=== PATIENT | female | born 1980 | race African-American/Black ===

== ENCOUNTER 2019-01-14 17:45 | Emergency (ER) | payer OTHER, SELFPAY ==
[2019-01-14 18:28] VITALS: BP 128/72; PULSE 86; RESP 18; TEMP 36.8; O2SAT 100; BMI 27.2
--- NOTE | 2019-01-14 19:28 | DI.US.S_ITS ---
PROCEDURE: US OB <= 14 WEEKS FETUS INDICATIONS: SPOTTING OUTSIDE/PRIOR DATING DATA: Last menstrual period (LMP): 12/06/18. LMP-based estimated date of delivery (ANISH): 09/12/19. First dating scan (date and location): 01/14/19 Estimated date of delivery (ANISH) from first dating scan: Not applicable. TECHNIQUE: Real-time scanning was performed of the fetus and maternal pelvic organs, with image documentation. Endovaginal scanning was also performed to better visualize the fetus and maternal ovaries. COMPARISON: None. FINDINGS: Embryo: Intrauterine gestational sac is identified measuring 4 mm correspond to 5 weeks one day. No pole is identified. Measurement variability in dating: +/- 4 weeks by LMP, +/- 7 days by mean sac diameter (use before 6 weeks gestation if crown-rump length not able to be measured), +/- 5 days by crown-rump length (up to 8 weeks 6 days gestation), +/- 7 days by crown-rump length (up to 13 weeks 6 days gestation). Maternal organs: Ovaries demonstrated left corpus luteal cyst. Limited images through the kidneys demonstrate no hydronephrosis. IMPRESSION: 1. Intrauterine gestational sac identified corresponding to gestational age of 5 weeks one day. Recommend followup imaging for evaluation of pole development and heart tones, as well as correlation with beta hCG levels. Dictated by: Melissa Roberts M.D. on 01/14/2019 at 21:16 Approved by: Melissa Roberts M.D. on 01/14/2019 at 21:17
--- NOTE | 2019-01-14 20:02 | ED.PREGNANCY ---
HPI - <KFOFI Arguelles - Last Filed: 01/14/19 22:01> General Chief complaint: Vaginal Bleeding Stated complaint: 5 weeks /spotting and cramping Time Seen by Provider: 01/14/19 19:26 Source: patient Mode of arrival: ambulatory Limitations: no limitations History of Present Illness HPI Narrative: 38-year-old female , presents emergency department today stating that she is 5 weeks . This morning she woke and had some lower abdominal cramping for which she took 650 mg of Tylenol for. She states she is in found some brown vaginal discharge on the toilet paper after she urinated around noon today. She had 3 more episodes of bloody brown discharge, and then the bleeding resolved. She states she has very mild cramping at this time, describes it as a 1/10 without aggravating or alleviating factors. She denies any fevers, chest pain, shortness of breath, dizziness, nausea, vomiting, diarrhea, or syncope. She states that she had some crampy bleeding beginning of this and is currently scheduled for a ultrasound on February 02. Related Data Allergies Allergy/AdvReac Type Severity Reaction Status Date / Time clavulanic acid Allergy Verified 01/14/19 18:28 Review of Systems <KOFFI Arguelles - Last Filed: 01/14/19 22:01> Review of Systems Narrative: REVIEW OF SYSTEMS: GENERAL: Denies fever, chills, malaise, or wt. loss. HENT: No head trauma, sore throat, or dysphagia. EYES: No loss of vision, double vision, eye pain, or irritation. CARDIOVASCULAR: No chest pain, palpitations, or orthopnea. RESPIRATORY: No shortness of breath or cough. GASTROINTESTINAL: Complains of abdominal cramping, see HPI GENITOURINARY: No flank pain, urinary incontinence, hesitancy, frequency, or dysuria. Complains of vaginal bleeding, see HPI. MUSCULOSKELETAL: No pain, weakness, or trauma. INTEGUMENTARY: No rash, lesions, or pruritus. NEURO: No numbness, tingling, memory loss, confusion, or headaches. PSYCH: No behavior or mood changes. PMFSH - <KOFFI Arguelles - Last Filed: 01/14/19 22:01> Past Medical History Medical history: Reports no medical history Family History Family history: Reports no significant family history Exam <KOFFI Arguelles - Last Filed: 01/14/19 22:01> Initial Vital Signs Initial Vital Signs: Vital Signs Temperature 98.3 F 01/14/19 18:28 Pulse Rate 86 01/14/19 18:28 Respiratory Rate 18 01/14/19 18:28 Blood Pressure 128/72 01/14/19 18:28 Pulse Oximetry 100 01/14/19 18:28 PHYSICAL EXAMINATION: GENERAL: Well groomed, alert, and cooperative. Answers questions promptly and appropriately. Vital signs noted. HENT: Normocephalic, atraumatic. Hearing intact. Oral mucosa is pink and moist. EYES: Conjunctiva pink, sclera white, no periorbital swelling. CARDIOVASCULAR: S1 and S2 sounds normal. Regular rate and rhythm, no murmurs, clicks, or bruits. No pedal edema. RESPIRATORY: Normal respiratory rate, trachea midline, airway patent. No stridor, nasal flaring or accessory muscle use. Lungs are clear in all pedro without wheeze, rhonchi, or crackles. GASTROINTESTINAL: Bowel sounds normoactive. Abdomen is soft and non-tender. No organomegaly, no palpable masses. GENITALURINARY: No flank tenderness. MUSCULOSKELETAL: Normal gait and coordination. Equal tone and mass bilaterally. EXTREMITIES: CMS intact, no pedal edema. SKIN: Warm, dry, soft, appropriate color for ethnicity. No lesions, rashes, or wounds. NEURO: Alert and Oriented X 3. Good coordination. No ataxia, or sensory deficits, or cognitive issues. PSYCH: Appropriate affect and mood. <Nicole Cordova MD - Last Filed: 01/15/19 02:00> Initial Vital Signs Initial Vital Signs: Vital Signs Temperature 98.3 F 01/14/19 18:28 Pulse Rate 86 01/14/19 18:28 Respiratory Rate 18 01/14/19 18:28 Blood Pressure 128/72 01/14/19 18:28 Pulse Oximetry 100 01/14/19 18:28 Course <KOFFI Arguelles - Last Filed: 01/14/19 22:01> Orders Ordered: ED Orders 01/14/19 19:28 US OB <= 14 weeks fetus Stat 01/14/19 20:13 ABO RH Type Stat Complete Blood Count AUTO DIFF Stat Comprehensive Metabolic Panel Stat HCG Quantitative Stat Consultations Consultation #1: Patient staffed with Dr. Cordova. Vital Signs Vital signs: Vital Signs - 8 hr 01/14/19 18:28 01/14/19 20:18 01/14/19 21:02 Temperature 98.3 F Pulse Rate 86 84 90 Respiratory Rate 18 15 16 Blood Pressure 128/72 Blood Pressure [Left Arm] 131/75 123/56 L Pulse Oximetry 100 100 100 <Nicole Cordova MD - Last Filed: 01/15/19 02:00> Orders Ordered: ED Orders 01/14/19 19:28 US OB <= 14 weeks fetus Stat 01/14/19 20:13 ABO RH Type Stat Complete Blood Count AUTO DIFF Stat Comprehensive Metabolic Panel Stat HCG Quantitative Stat Vital Signs Vital signs: Vital Signs - 8 hr 01/14/19 18:28 01/14/19 20:18 01/14/19 21:02 Temperature 98.3 F Pulse Rate 86 84 90 Respiratory Rate 18 15 16 Blood Pressure 128/72 Blood Pressure [Left Arm] 131/75 123/56 L Pulse Oximetry 100 100 100 MDM - OB/Uterine Contractions <KOFFI Arguelles - Last Filed: 01/14/19 22:01> Medical Records Attestation: I reviewed the patient's medical records. Lab Data Attestation: I reviewed the patient's lab results. Result diagrams: 01/14/19 20:13 01/14/19 20:13 Labs: Lab Results 01/14/19 01/14/19 01/14/19 Range/Units 20:13 20:13 20:13 WBC 11.7 H (4.5-11.0) X10^3/uL RBC 4.42 (4.0-5.2) X10^6/uL Hgb 13.5 (12.0-16.0) g/dL Hct 40.0 (36-46) % MCV 90.5 (80-100) fL MCH 30.6 (26-34) PG MCHC 33.8 (30-36) % RDW 13.0 (11.6-14.8) % Plt Count 319 (150-400) X10^3/uL Neut % (Auto) 58.1 (50-75) % Lymph % (Auto) 34.5 (25-40) % [place] % (Auto) 5.5 (3-14) % Eos % (Auto) 0.9 L (2-4) % Baso % (Auto) 1.0 (0-2) % Neut # (Auto) 6800 (3627-9574) /uL Lymph # (Auto) 4000 (2842-9150) /uL [place] # (Auto) 600 (0-900) /uL Eos # (Auto) 100 (0-450) /uL Baso # (Auto) 100 (0-100) /uL Sodium 139 (137-145) mmol/L Potassium 4.1 (3.4-5.1) mmol/L Chloride 105 (98-107) mmol/L Carbon Dioxide 24 (22-32) mmol/L BUN 10 (7-17) mg/dL Creatinine 0.60 (0.52-1.04) mg/dL Estimated GFR > 60.0 (>60) mL/min BUN/Creatinine Ratio 16.7 (6-22) Glucose 101 H (70-100) mg/dL Calcium 9.7 (8.4-10.2) mg/dL Total Bilirubin 0.3 (0.2-1.3) mg/dL AST 17 (14-36) IU/L ALT 7 L (9-52) IU/L Alkaline Phosphatase 44 (38-126) U/L Total Protein 7.7 (6.3-8.2) g/dL Albumin 4.6 (3.5-5.0) g/dL Globulin 3.1 (1.7-4.1) g/dL Albumin/Globulin Ratio 1.5 (1.0-2.8) HCG, Quant 5926.0 mIU/mL Blood Type A Positive Point of Care Testing Test Results Positive Urine Dip Bedside Urine Glucose Negative Bedside Urine Bilirubin - Negative Bedside Urine Ketone - Negative Urine Specific Central 1.015 Bedside Urine Occult Blood ++ Bedside Urine pH 5.5 Bedside Urine Protein - Negative Bedside Urine Urobilinogen - Negative Bedside Urine Nitrite - Negative Bedside Urine Leukocytes - Negative Esterase Imaging Data US Pelvic OB: Radiologist's impression: [address] [address] Ultrasound Report Signed Patient: Sol CortesaMR#: [id number] : 1980Acct:[id number] Age/Sex: 38 / FDate of Service: 01/14/19 Loc: ED Accession Number: [id number] Procedure: US OB <= 14 weeks fetus Ordering Provider: Cynthia Flores PROCEDURE: US OB <= 14 WEEKS FETUS INDICATIONS: SPOTTING OUTSIDE/PRIOR DATING DATA: Last menstrual period (LMP): 12/06/18. LMP-based estimated date of delivery (ANISH): 09/12/19. First dating scan (date and location): 01/14/19 Estimated date of delivery (ANISH) from first dating scan: Not applicable. TECHNIQUE: Real-time scanning was performed of the fetus and maternal pelvic organs, with image documentation. Endovaginal scanning was also performed to better visualize the fetus and maternal ovaries. COMPARISON: None. FINDINGS: Embryo: Intrauterine gestational sac is identified measuring 4 mm correspond to 5 weeks one day. No pole is identified. Measurement variability in dating: +/- 4 weeks by LMP, +/- 7 days by mean sac diameter (use before 6 weeks gestation if crown-rump length not able to be measured), +/- 5 days by crown-rump length (up to 8 weeks 6 days gestation), +/- 7 days by crown-rump length (up to 13 weeks 6 days gestation). Maternal organs: Ovaries demonstrated left corpus luteal cyst. Limited images through the kidneys demonstrate no hydronephrosis. IMPRESSION: 1. Intrauterine gestational sac identified corresponding to gestational age of 5 weeks one day. Recommend followup imaging for evaluation of pole development and heart tones, as well as correlation with beta hCG levels. Dictated by: Melissa Roberts M.D. on 01/14/2019 at 21:16 Approved by: Melissa Roberts M.D. on 01/14/2019 at 21:17 [facility] Narrative Medical decision making narrative: Insert exact cause of uterine bleeding. Differential includes miscarriage (less likely due to reassuring labs and ultrasound however is difficult to determine at this time as patient is only 5 weeks ), or benign vaginal bleeding during . Less likely STIs (patient denies any pelvic pain, foul discharge, or foul odor). Less likely UTI due to unremarkable urinalysis. <Nicole Cordova MD - Last Filed: 01/15/19 02:00> Lab Data Labs: Lab Results 09/01/19 09/01/19 09/01/19 Range/Units 20:13 20:13 20:13 WBC 11.7 H (4.5-11.0) X10^3/uL RBC 4.42 (4.0-5.2) X10^6/uL Hgb 13.5 (12.0-16.0) g/dL Hct 40.0 (36-46) % MCV 90.5 (80-100) fL MCH 30.6 (26-34) PG MCHC 33.8 (30-36) % RDW 13.0 (11.6-14.8) % Plt Count 319 (150-400) X10^3/uL Neut % (Auto) 58.1 (50-75) % Lymph % (Auto) 34.5 (25-40) % [place] % (Auto) 5.5 (3-14) % Eos % (Auto) 0.9 L (2-4) % Baso % (Auto) 1.0 (0-2) % Neut # (Auto) 6800 (8460-0478) /uL Lymph # (Auto) 4000 (1584-2810) /uL [place] # (Auto) 600 (0-900) /uL Eos # (Auto) 100 (0-450) /uL Baso # (Auto) 100 (0-100) /uL Sodium 139 (137-145) mmol/L Potassium 4.1 (3.4-5.1) mmol/L Chloride 105 (98-107) mmol/L Carbon Dioxide 24 (22-32) mmol/L BUN 10 (7-17) mg/dL Creatinine 0.60 (0.52-1.04) mg/dL Estimated GFR > 60.0 (>60) mL/min BUN/Creatinine Ratio 16.7 (6-22) Glucose 101 H (70-100) mg/dL Calcium 9.7 (8.4-10.2) mg/dL Total Bilirubin 0.3 (0.2-1.3) mg/dL AST 17 (14-36) IU/L ALT 7 L (9-52) IU/L Alkaline Phosphatase 44 (38-126) U/L Total Protein 7.7 (6.3-8.2) g/dL Albumin 4.6 (3.5-5.0) g/dL Globulin 3.1 (1.7-4.1) g/dL Albumin/Globulin Ratio 1.5 (1.0-2.8) HCG, Quant 5926.0 mIU/mL Blood Type A Positive Point of Care Testing Test Results Positive Urine Dip Bedside Urine Glucose Negative Bedside Urine Bilirubin - Negative Bedside Urine Ketone - Negative Urine Specific Central 1.015 Bedside Urine Occult Blood ++ Bedside Urine pH 5.5 Bedside Urine Protein - Negative Bedside Urine Urobilinogen - Negative Bedside Urine Nitrite - Negative Bedside Urine Leukocytes - Negative Esterase Discharge Plan Departure Patient Disposition: Home Clinical Impression: Vaginal bleeding during Discharge Date/Time: 01/14/19 21:39 Instructions: DI for Vaginal Bleeding During Activity Restrictions/Additional Instructions: Thank you for entrusting me with your care today. As discussed, your lab work and ultrasound is reassuring. However, it is very important to have follow-up HCG levels and ultrasound to further determine the viability of . 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 Return to the emergency department if he develops chest pain, shortness of breath, syncope, high fevers, or other concerning symptoms.
[2019-01-14 20:18] VITALS: BP 131/75; PULSE 84; RESP 15; O2SAT 100
[2019-01-14 20:29] LABS: Add Manual Diff / Slide Review NO; Basophils Absolute Auto 100 /uL (0-100); Eosinophils Absolute Auto 100 /uL (0-450); Eosinophils Percent Auto 0.9 % (2-4); Hemoglobin 13.5 g/dL (12.0-16.0); Lymphocytes Absolute Auto 4000 /uL (1100-4500); Lymphocytes Percent Auto 34.5 % (25-40); Mean Corpuscular HGB Conc 33.8 % (30-36); Mean Corpuscular Hemoglobin 30.6 PG (26-34); Mean Corpuscular Volume 90.5 fL (80-100); Monocytes Absolute Auto 600 /uL (0-900); Monocytes Percent Auto 5.5 % (3-14); Neutrophils Absolute Auto 6800 /uL (1500-7000); Neutrophils Percent Auto 58.1 % (50-75); Platelet Count 319 X10^3/uL (150-400); Red Blood Cell Count 4.42 X10^6/uL (4.0-5.2); White Blood Cell Count 11.7 X10^3/uL (4.5-11.0)
[2019-01-14 20:35] LABS: Alanine Aminotransferase 7 IU/L (9-52); Albumin 4.6 g/dL (3.5-5.0); Albumin Globulin Ratio 1.5 (1.0-2.8); Alkaline Phosphatase 44 U/L (38-126); Aspartate Aminotransferase 17 IU/L (14-36); BUN Creatinine Ratio 16.7 (6-22); Bilirubin Total 0.3 mg/dL (0.2-1.3); Blood Urea Nitrogen 10 mg/dL (7-17); Calcium 9.7 mg/dL (8.4-10.2); Carbon Dioxide 24 mmol/L (22-32); Chloride 105 mmol/L (98-107); Estimated Glomerular Filt Rate > 60.0 mL/min (>60); Globulin 3.1 g/dL (1.7-4.1); Glucose 101 mg/dL (70-100); HEMOLYSIS < 15 (0-50); Potassium 4.1 mmol/L (3.4-5.1); Sodium 139 mmol/L (137-145); Total Protein 7.7 g/dL (6.3-8.2)
[2019-01-14 21:02] VITALS: BP 123/56; PULSE 90; RESP 16; O2SAT 100
== END 2019-01-14 21:39 | disposition home or self-care (01) ==
PROVIDERS: Emergency Provider Nurse Practitioner
DX: O46.90 Antepartum hemorrhage, unspecified, unspecified trimester (principal); Z3A.01 Less than 8 weeks gestation of pregnancy
CPT/HCPCS: 36415; 36591; 76801; 76817; 80053; 81003; 81025; 84702; 85025; 86900; 86901; 99283; 99284

== ENCOUNTER 2019-02-10 12:29 | Emergency (ER) | payer OTHER, SELFPAY ==
[2019-02-10 12:38] VITALS: BP 164/106; PULSE 87; RESP 18; TEMP 36.9; O2SAT 99
--- NOTE | 2019-02-10 12:49 | DI.US.S_ITS ---
PROCEDURE: US PELVIC COMPLETE INDICATIONS: RECENT SAB; INCREASED PAIN, BLEEDING TECHNIQUE: Real-time scanning was performed of the pelvic organs, with image documentation. Additional endovaginal scanning was necessary due to incomplete visualization of the adnexal and endometrial structures by transabdominal scanning. COMPARISON: [facility], US, US OB <= 14 WEEKS FETUS, 01/14/2019, 20:21. FINDINGS: Transabdominal scanning: Limited scanning through the kidneys shows no hydronephrosis. No pathologic free abdominal or pelvic fluid. Endovaginal scanning: Uterus: Uterus measures 7.9 x 4.1 x 6.0 cm. The endometrium measures 0.8 cm in combined thickness. No endometrial fluid or internal vascularity in the endometrium on color Doppler interrogation. Ovaries: The right ovary measures 3.5 x 2.0 x 2.1 cm and the left ovary measures 3.2 x 1.6 x 3.0 cm. There is a hypoechoic structure in the right ovary measuring up to 1.4 x 0.8 x 1.1 cm with peripheral vascularity on color Doppler interrogation. There is posterior acoustic enhancement. Findings are suggestive of a corpus luteal cyst. IMPRESSION: 1. No evidence of retained products of conception in the uterus. 2. Hypoechoic structure in the right ovary likely represents a corpus luteal cyst. An ectopic is less likely. Recommend followup clinically. Dictated by: Pete Kendrick M.D. on 02/10/2019 at 12:48 Approved by: Pete Kendrick M.D. on 02/10/2019 at 12:52
--- NOTE | 2019-02-10 14:04 | ED_ITS ---
HPI - Abdominal Pain <KOFFI Wolfe - Last Filed: 02/11/19 00:37> General Chief Complaint: Abdominal Pain Stated Complaint: miscarried 8 days ago/abd pain/fever Time Seen by Provider: 02/10/19 12:56 Source: patient Mode of arrival: Ambulatory Limitations: no limitations History of Present Illness HPI narrative: This is a 38-year-old female who had a miscarriage 8 weeks ago exhibited by no heart turn her ultrasound. Patient was given to use Cytotec and had used as instructed and started having vaginal bleeding 4 hrs after. Patient reports she still has occasional vaginal bleeding/clots which appears to be odorous, patient reports subjective fever and chills, decreased appetite, nausea without vomiting, bilateral abdominal cramping discomfort which is worse in left side since yesterday. Patient denies chest pain, breathing difficulty but reported some lightheadedness. Patient denies urinary symptoms. Patient has been taking Tylenol at home for her discomfort. This was a 3 spont AB. She was seeking OB care at [facility] (Dr. Flip Rosales?) and [facility] (Dr. Matias). Patient reports she had an appointment yesterday but the appointment was canceled by the clinic. Related Data Previous Rx's Medication Instructions Recorded tramadol 50 mg PO Q8H PRN #7 tab 02/10/19 potassium chloride 40 meq PO .once #2 tab 02/11/19 Allergies Allergy/AdvReac Type Severity Reaction Status Date / Time clavulanic acid Allergy Intermediate Anaphylaxis Verified 02/10/19 12:41 Review of Systems <KOFFI Wolfe - Last Filed: 02/11/19 00:37> Review of Systems ROS Unobtainable: All systems reviewed & are unremarkable except as noted in HPI and below PFSH <KOFFI Wolfe - Last Filed: 02/11/19 00:37> Social History Smoking Status: Never smoker Exam <KOFFI Wolfe - Last Filed: 02/11/19 00:37> Narrative Exam Narrative: GEN: Alert, oriented x 3, well appearing and nourished, and in no acute distress. Head: Normal cephalic, atraumatic. No scalp or temporal tenderness, palpable mass or rash. EYES: Pupils are equal, round, and reactive to light and accommodation. Extraocular muscles are intact bilaterally. There is no subconjunctival hemorrhage, exudate and sclera non-icteric. ENT: Hearing grossly intact. Nose without bleeding, purulent discharge or deviation. Facial sinuses nontender to palpate. Mucous membrane moist, no mucosal lesion. Throat without erythema, tonsillar hypertrophy or exudate. Uvula in midline, airway patent. Neck: Trachea in midline. No JVD, non-tender without lymphadenopathy. No mas ses or thyroid megaly. Supple, non-tender and no meningeal signs. CARDIAC: Normal regular rate and rhythm without murmurs, gallops, or rubs. No chest wall tenderness. No peripheral edema, cyanosis or pallor. Capillary refill is less than 2 seconds. RESPIRATORY: Lungs are cleat to auscultate bilaterally. No cough, wheezes, rales, or rhonchi. No stridor, respiratory distress, increase work of breathing, or accessary muscle used. ABD: Abdomen soft, non-distended, mild tender in bilateral lower abdominal pain worse on the left side. No guarding or rebound tenderness to palpate. Bowel sounds are normal in all 4 quadrants. There is no palpable masses or organomegaly. EXT: Full painless ROM of all extremities with no loss of sensation, strength, effusion or edema. SKIN: Warm, dry, normal color for patient. No erythema, lesions or rash over visible areas. BACK: Nontender without deformity or crepitance. No flank tenderness. NEUROLOGICAL: Alert and oriented to place, time and person. Sensation and motor function intact bilaterally. No facial droops, dysphasia. PSYCHIATRIC: Good judgement and reason, without hallucinations, abnormal affect or abnormal behaviors during the examination. Initial Vital Signs Initial Vital Signs: Vital Signs Temperature 98.4 F 02/10/19 12:38 Pulse Rate 87 02/10/19 12:38 Respiratory Rate 18 02/10/19 12:38 Blood Pressure 164/106 H 02/10/19 12:38 Pulse Oximetry 99 02/10/19 12:38 <Soraya Best, DO - Last Filed: 02/11/19 08:43> Initial Vital Signs Initial Vital Signs: Vital Signs Temperature 98.4 F 02/10/19 12:38 Pulse Rate 87 02/10/19 12:38 Respiratory Rate 18 02/10/19 12:38 Blood Pressure 164/106 H 02/10/19 12:38 Pulse Oximetry 99 02/10/19 12:38 Scores <Jose AnnabelleKOFFI luz - Last Filed: 02/11/19 00:37> GCS [place] coma scale eye opening: Spontaneous [place] coma scale verbal response: Orientated Alex coma scale motor response: Obey commands [place] coma scale total score: 15 Course <Jose CazaresKOFFI Egan - Last Filed: 02/11/19 00:37> Orders Ordered: Discontinued Medications Sodium Chloride (Normal Saline 0.9%) 1,000 mls @ 1,000 mls/hr IV BOLUS ONE Stop: 02/10/19 15:04 Last Admin: 02/10/19 14:34 Dose: Not Given Documented by: [facility] Ibuprofen (Advil) 800 mg PO NOW ONE Stop: 02/10/19 14:23 Last Admin: 02/10/19 14:25 Dose: 800 mg [facility] Ketor[facility]ac Tromethamine (Toradol) 30 mg IV NOW ONE Stop: 02/10/19 14:06 Last Admin: 02/10/19 14:34 Dose: Not Given Documented by: [facility] Vital Signs Vital signs: Vital Signs - 8 hr 02/10/19 16:16 Pulse Rate 65 Respiratory Rate 19 Blood Pressure [Left Arm] 119/74 Pulse Oximetry 100 <Soraya Best DO - Last Filed: 02/11/19 08:43> Orders Ordered: Discontinued Medications Sodium Chloride (Normal Saline 0.9%) 1,000 mls @ 1,000 mls/hr IV BOLUS ONE Stop: 02/10/19 15:04 Last Admin: 02/10/19 14:34 Dose: Not Given Documented by: [facility] Ibuprofen (Advil) 800 mg PO NOW ONE Stop: 02/10/19 14:23 Last Admin: 02/10/19 14:25 Dose: 800 mg [facility] Ketor[facility]ac Tromethamine (Toradol) 30 mg IV NOW ONE Stop: 02/10/19 14:06 Last Admin: 02/10/19 14:34 Dose: Not Given Documented by: [facility] Vital Signs Vital signs: Vital Signs - 8 hr 02/10/19 16:16 Pulse Rate 65 Respiratory Rate 19 Blood Pressure [Left Arm] 119/74 Pulse Oximetry 100 MDM - Abdominal Pain <Jose CazaresKOFFI Egan - Last Filed: 02/11/19 00:37> Differential Diagnosis Differential diagnosis: Likely abdominal pain and other (UTI, ectopic , spontaneous AB, ovarian cyst) Medical Records Attestation: I reviewed the patient's medical records. Lab Data Attestation: I reviewed the patient's lab results. Result diagrams: 02/10/19 14:10 02/10/19 14:10 Labs: Lab Results 02/10/19 02/10/19 02/10/19 Range/Units 14:10 14:10 14:10 WBC 7.2 (4.5-11.0) X10^3/uL RBC 4.01 (4.0-5.2) X10^6/uL Hgb 12.5 (12.0-16.0) g/dL Hct 37.1 (36-46) % MCV 92.4 (80-100) fL MCH 31.0 (26-34) PG MCHC 33.6 (30-36) % RDW 14.0 (11.6-14.8) % Plt Count 328 (150-400) X10^3/uL Neut % (Auto) 55.2 (50-75) % Lymph % (Auto) 36.3 (25-40) % [place] % (Auto) 5.5 (3-14) % Eos % (Auto) 2.0 (2-4) % Baso % (Auto) 1.0 (0-2) % Neut # (Auto) 4000 (8358-6635) /uL Lymph # (Auto) 2600 (9414-4528) /uL [place] # (Auto) 400 (0-900) /uL Eos # (Auto) 100 (0-450) /uL Baso # (Auto) 100 (0-100) /uL Sodium 141 (137-145) mmol/L Potassium 3.1 L (3.4-5.1) mmol/L Chloride 103 (98-107) mmol/L Carbon Dioxide 29 (22-32) mmol/L BUN 7 (7-17) mg/dL Creatinine 0.50 L (0.52-1.04) mg/dL Estimated GFR > 60.0 (>60) mL/min BUN/Creatinine Ratio 14.0 (6-22) Glucose 86 (70-100) mg/dL Calcium 9.3 (8.4-10.2) mg/dL Total Bilirubin 0.4 (0.2-1.3) mg/dL AST 59 H (14-36) IU/L ALT 24 (9-52) IU/L Alkaline Phosphatase 41 (38-126) U/L Total Protein 7.0 (6.3-8.2) g/dL Albumin 4.2 (3.5-5.0) g/dL Globulin 2.8 (1.7-4.1) g/dL Albumin/Globulin Ratio 1.5 (1.0-2.8) HCG, Quant 110.85 mIU/mL Blood Type A Positive Point of care testing: Urine Dip Bedside Urine Glucose Negative Bedside Urine Bilirubin - Negative Bedside Urine Ketone - Negative Urine Specific [place] 1.010 Bedside Urine Occult Blood ++ Bedside Urine pH 7.0 Bedside Urine Protein - Negative Bedside Urine Urobilinogen - Negative Bedside Urine Nitrite - Negative Bedside Urine Leukocytes - Negative Esterase Imaging Data US-Abd/pelvic: Radiologist's impression: [address] [address] Ultrasound Report Signed Patient: Sol Cortes AsangelitoaMR#: [id number] : 1980Acct:[id number] Age/Sex: 38 / FDate of Service: 02/10/19 Loc: ED Accession Number: [id number] Procedure: US pelvic complete Ordering Provider: Soraya Best D.O. PROCEDURE: US PELVIC COMPLETE INDICATIONS: RECENT SAB; INCREASED PAIN, BLEEDING TECHNIQUE: Real-time scanning was performed of the pelvic organs, with image documentation. Additional endovaginal scanning was necessary due to incomplete visualization of the adnexal and endometrial structures by transabdominal scanning. COMPARISON: [facility], , US OB <= 14 WEEKS FETUS, 01/14/2019, 20:21. FINDINGS: Transabdominal scanning: Limited scanning through the kidneys shows no hydronephrosis. No pathologic free abdominal or pelvic fluid. Endovaginal scanning: Uterus: Uterus measures 7.9 x 4.1 x 6.0 cm. The endometrium measures 0.8 cm in combined thickness. No endometrial fluid or internal vascularity in the endometrium on color Doppler interrogation. Ovaries: The right ovary measures 3.5 x 2.0 x 2.1 cm and the left ovary measures 3.2 x 1.6 x 3.0 cm. There is a hypoechoic structure in the right ovary measuring up to 1.4 x 0.8 x 1.1 cm with peripheral vascularity on color Doppler interrogation. There is posterior acoustic enhancement. Findings are suggestive of a corpus luteal cyst. IMPRESSION: 1. No evidence of retained products of conception in the uterus. 2. Hypoechoic structure in the right ovary likely represents a corpus luteal cyst. An ectopic is less likely. Recommend followup clinically. Dictated by: Pete Kendrick M.D. on 02/10/2019 at 12:48 Approved by: Pete Kendrick M.D. on 02/10/2019 at 12:52 MDM Narrative Medical decision making narrative: This is a 38-year-old female with chief complaint of low abdominal pain, worse on left side, with subjective fever and chills, odorous intermittent vaginal bleeding with clots, and nausea. Patient had miscarried her 3rd and had use Cytotec 8 days ago to induce to pass the product of conception. Patient had an appointment with her OB physician at [facility] yesterday which was canceled by the clinic. Urine test was obtained with negative findings for infection but with ++ occult blood. There was no anemia, leukocytosis. Her potassium was mildly decreased to 3.1 otherwise unremarkable. Pelvic ultrasound shows no endometrial fluid or evidence of retained products of conception. It also showed hypoechoic structure size in 1.4x 0.8x 1.1 with peripheral vascularity on color Doppler test in right ovary likely a corpus luteal cyst. Patient's abdomen was reassessed prior discharge to home and patient reports left abdominal pain was worst than right-side since yesterday. We discussed strict return precautions and patient advised to follow up with OB-PAPER CONTROL CLERK doctors either at [facility] in or [facility] next 2-3 days. Patient verbalized the understanding and agrees with treatment plan. Patient advised to use [id number] Tylenol and or Motrin as needed for cramping discomfort and warm pack. Patient advised to use tramadol for severe pain and narcotic medication precautions were discussed. No further questions were expressed at this time. Addendum: Hypokalemia was not addressed during ED stay and phone message was left to call back to ED. 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 <Soraya Best, DO - Last Filed: 02/11/19 08:43> Lab Data Labs: Lab Results 02/10/19 02/10/19 02/10/19 Range/Units 14:10 14:10 14:10 WBC 7.2 (4.5-11.0) X10^3/uL RBC 4.01 (4.0-5.2) X10^6/uL Hgb 12.5 (12.0-16.0) g/dL Hct 37.1 (36-46) % MCV 92.4 (80-100) fL MCH 31.0 (26-34) PG MCHC 33.6 (30-36) % RDW 14.0 (11.6-14.8) % Plt Count 328 (150-400) X10^3/uL Neut % (Auto) 55.2 (50-75) % Lymph % (Auto) 36.3 (25-40) % [place] % (Auto) 5.5 (3-14) % Eos % (Auto) 2.0 (2-4) % Baso % (Auto) 1.0 (0-2) % Neut # (Auto) 4000 (7421-5605) /uL Lymph # (Auto) 2600 (8010-7762) /uL [place] # (Auto) 400 (0-900) /uL Eos # (Auto) 100 (0-450) /uL Baso # (Auto) 100 (0-100) /uL Sodium 141 (137-145) mmol/L Potassium 3.1 L (3.4-5.1) mmol/L Chloride 103 (98-107) mmol/L Carbon Dioxide 29 (22-32) mmol/L BUN 7 (7-17) mg/dL Creatinine 0.50 L (0.52-1.04) mg/dL Estimated GFR > 60.0 (>60) mL/min BUN/Creatinine Ratio 14.0 (6-22) Glucose 86 (70-100) mg/dL Calcium 9.3 (8.4-10.2) mg/dL Total Bilirubin 0.4 (0.2-1.3) mg/dL AST 59 H (14-36) IU/L ALT 24 (9-52) IU/L Alkaline Phosphatase 41 (38-126) U/L Total Protein 7.0 (6.3-8.2) g/dL Albumin 4.2 (3.5-5.0) g/dL Globulin 2.8 (1.7-4.1) g/dL Albumin/Globulin Ratio 1.5 (1.0-2.8) HCG, Quant 110.85 mIU/mL Blood Type A Positive Point of care testing: Urine Dip Bedside Urine Glucose Negative Bedside Urine Bilirubin - Negative Bedside Urine Ketone - Negative Urine Specific [place] 1.010 Bedside Urine Occult Blood ++ Bedside Urine pH 7.0 Bedside Urine Protein - Negative Bedside Urine Urobilinogen - Negative Bedside Urine Nitrite - Negative Bedside Urine Leukocytes - Negative Esterase Discharge Plan Departure Patient Disposition: Home Clinical Impression: Spontaneous , Hypokalemia Ovarian cyst Qualifiers: Laterality: right Qualified Code(s): N83.201 - Unspecified ovarian cyst, right side Discharge Date/Time: 02/10/19 16:19 Instructions: DI for Miscarriage, DI for Ovarian Cyst Activity Restrictions/Additional Instructions: You have been diagnosed with [miscarriage, possible right-sided ovarian cyst. Ultrasound today did not show retaining product of , however, hypo echo it structure in the right ovary which should be followed up with the contract negotiation manager doctor]. What to do: *Take your medications as directed. You can take [id number] Tylenol and or Motrin as needed for discomfort. If the pain is severe please take tramadol that has been prescribed today. This med can cause drowsiness so please take precaution such as not driving, drink alcohol, or operating any heavy equipments. *Follow up with your OB-PAPER CONTROL CLERK doctor in 2-3 days, call for an appointment. Let them know you were seen in the ED and that we asked you to be seen in follow up. *Return to ED if you have any new, worsening, or concerning symptoms, such as [chest pain, breathing difficulty, fever, increasing abdominal pain, feel like fainting, or any acute concerns]. Prescriptions: New tramadol 50 mg tablet 50 mg PO Q8H PRN (Reason: pain) Qty: 7 RF: 0 potassium chloride 20 mEq tablet extended release 40 meq PO .once Qty: 2 RF: 0
[2019-02-10] MEDS: IBUPROFEN 400 MG TABLET 800 MG PO (14:25)
[2019-02-10 14:58] LABS: Add Manual Diff / Slide Review NO; Basophils Absolute Auto 100 /uL (0-100); Eosinophils Absolute Auto 100 /uL (0-450); Hematocrit 37.1 % (36-46); Hemoglobin 12.5 g/dL (12.0-16.0); Lymphocytes Absolute Auto 2600 /uL (1100-4500); Lymphocytes Percent Auto 36.3 % (25-40); Mean Corpuscular HGB Conc 33.6 % (30-36); Mean Corpuscular Volume 92.4 fL (80-100); Monocytes Absolute Auto 400 /uL (0-900); Monocytes Percent Auto 5.5 % (3-14); Neutrophils Absolute Auto 4000 /uL (1500-7000); Neutrophils Percent Auto 55.2 % (50-75); Platelet Count 328 X10^3/uL (150-400); Red Blood Cell Count 4.01 X10^6/uL (4.0-5.2); White Blood Cell Count 7.2 X10^3/uL (4.5-11.0)
[2019-02-10 15:02] VITALS: BP 122/59; PULSE 69; RESP 17; O2SAT 100
[2019-02-10 15:03] LABS: Alanine Aminotransferase 24 IU/L (9-52); Albumin 4.2 g/dL (3.5-5.0); Albumin Globulin Ratio 1.5 (1.0-2.8); Alkaline Phosphatase 41 U/L (38-126); Aspartate Aminotransferase 59 IU/L (14-36); Bilirubin Total 0.4 mg/dL (0.2-1.3); Blood Urea Nitrogen 7 mg/dL (7-17); Calcium 9.3 mg/dL (8.4-10.2); Carbon Dioxide 29 mmol/L (22-32); Chloride 103 mmol/L (98-107); Estimated Glomerular Filt Rate > 60.0 mL/min (>60); Globulin 2.8 g/dL (1.7-4.1); Glucose 86 mg/dL (70-100); HEMOLYSIS < 15 (0-50); Potassium 3.1 mmol/L (3.4-5.1); Sodium 141 mmol/L (137-145)
[2019-02-10 15:19] LABS: HCG Quantitative /Beta subunit 110.85 mIU/mL
[2019-02-10 16:16] VITALS: BP 119/74; PULSE 65; RESP 19; O2SAT 100
== END 2019-02-10 16:19 | disposition home or self-care (01) ==
PROVIDERS: Emergency Medicine; Emergency Provider Nurse Practitioner Family
DX: O03.9 Complete or unspecified spontaneous abortion without complication (principal); E87.6 Hypokalemia; N83.201 Unspecified ovarian cyst, right side
CPT/HCPCS: 76830; 76856; 80053; 81003; 84702; 85025; 86900; 86901; 99282; 99284

== ENCOUNTER 2019-05-01 17:59 | Emergency (ER) | payer OTHER, SELFPAY ==
[2019-05-01 18:02] VITALS: BP 131/79; PULSE 99; RESP 18; O2SAT 100
--- NOTE | 2019-05-01 18:41 | ED.PREGNANCY ---
HPI - General Chief complaint: OB/Uterine Contractions Stated complaint: states is miscarrying 10 weeks Time Seen by Provider: 05/01/19 18:36 Source: patient Mode of arrival: Ambulatory Limitations: no limitations History of Present Illness HPI Narrative: Patient is a 38-year-old female , presenting with bright red blood vaginal discharge. She had some spotting a week ago told she had chorionic hemorrhage however this morning she had increased back pain in increased bleeding this evening she passed a moss matter. She has intense lower abdominal pain. She is seeking care at [facility] Ob fertility specialist. MD Complaint: abdominal pain and vaginal bleeding Related Data Previous Rx's Medication Instructions Recorded tramadol 50 mg PO Q8H PRN #7 tab 02/10/19 potassium chloride 40 meq PO .once #2 tab 02/11/19 Allergies Allergy/AdvReac Type Severity Reaction Status Date / Time clavulanic acid Allergy Intermediate Anaphylaxis Verified 02/10/19 12:41 Review of Systems Review of Systems Narrative: GENERAL: Denies chills, fatigue, malaise, fever, sweats, travel HEENT: Denies sinus pain, ear pain, sore throat, difficulty swallowing, neck pain RESPIRATORY: Denies dyspnea, cough, wheezing, hemoptysis, sputum. CARDIOVASCULAR: Denies chest pain, palpitations, orthopnea, edema GASTROINTESTINAL: Denies nausea, vomiting, abdominal pain, diarrhea, constipation, melena. 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 MUSCULOSKELETAL: Denies weakness, joint pain, or bony pain SKIN: No rash, no erythema, no pruritus NEUROLOGIC: Denies weakness, dizziness, headache, numbness, change in speech, confusion PSYCHIATRIC: No concerning psychosocial issues. 12 point review of systems is negative except for those stated above and HPI PMFSH - Past Medical History Medical history: Reports no medical history Family History Family history: Reports no significant family history Exam Initial Vital Signs Initial Vital Signs: Vital Signs Pulse Rate 99 H 05/01/19 18:02 Respiratory Rate 18 05/01/19 18:02 Blood Pressure 131/79 05/01/19 18:02 Pulse Oximetry 100 05/01/19 18:02 GENERAL: Well-appearing, well-nourished and in no acute distress. HEENT: Head atraumatic,EOMI, pupils reactive, face symmetric, moist mucous membranes CARDIOVASCULAR: Regular rate and rhythm without murmurs, rubs or gallops. RESPIRATORY: Breath sounds equal bilaterally, no wheezes rales or rhonchi. ABDOMEN: Soft, minimal lower quadrant tenderness no guarding or rebound : No CVA tenderness EXTREMITIES: Normal range of motion, no clubbing or edema. Neurovascularly intact NEUROLOGICAL: Alert and oriented x4.Normal gait and speech. Cranial nerves II through XII grossly intact. SKIN: Warm, dry, no laceration, no petechiae, no rashes or lesions. Course Orders Ordered: ED Orders 05/01/19 18:42 US pelvic complete Stat 05/01/19 19:00 Complete Blood Count AUTO DIFF Stat Comprehensive Metabolic Panel Stat HCG Quantitative Stat Discontinued Medications Ketorolac Tromethamine (Toradol) 30 mg IV NOW ONE Stop: 05/01/19 18:46 Last Admin: 05/01/19 19:03 Dose: 30 mg Documented by: FRANCO Vital Signs Vital signs: Vital Signs - 8 hr 05/01/19 18:02 05/01/19 20:16 05/01/19 20:36 Temperature 98.5 F Pulse Rate 99 H 73 76 Respiratory Rate 18 18 16 Blood Pressure 131/79 103/63 Blood Pressure [Left Arm] 104/75 Pulse Oximetry 100 99 100 MDM - OB/Uterine Contractions Lab Data Attestation: I reviewed the patient's lab results. Result diagrams: 05/01/19 19:00 05/01/19 19:00 Labs: Lab Results 05/01/19 05/01/19 05/01/19 Range/Units 19:00 19:00 19:00 WBC 11.0 (4.5-11.0) X10^3/uL RBC 4.31 (4.0-5.2) X10^6/uL Hgb 13.3 (12.0-16.0) g/dL Hct 39.4 (36-46) % MCV 91.6 (80-100) fL MCH 31.0 (26-34) PG MCHC 33.8 (30-36) % RDW 13.0 (11.6-14.8) % Plt Count 292 (150-400) X10^3/uL Neut % (Auto) 86.2 H (50-75) % Lymph % (Auto) 8.7 L (25-40) % [place] % (Auto) 4.0 (3-14) % Eos % (Auto) 0.4 L (2-4) % Baso % (Auto) 0.7 (0-2) % Neut # (Auto) 9500 H (7993-4371) /uL Lymph # (Auto) 1000 L (4611-9557) /uL [place] # (Auto) 400 (0-900) /uL Eos # (Auto) 0 (0-450) /uL Baso # (Auto) 100 (0-100) /uL Sodium 136 L (137-145) mmol/L Potassium 3.8 (3.4-5.1) mmol/L Chloride 101 (98-107) mmol/L Carbon Dioxide 25 (22-32) mmol/L BUN 4 L (7-17) mg/dL Creatinine 0.50 L (0.52-1.04) mg/dL Estimated GFR > 60.0 (>60) mL/min BUN/Creatinine Ratio 8.0 (6-22) Glucose 82 (70-100) mg/dL Calcium 9.9 (8.4-10.2) mg/dL Total Bilirubin 0.4 (0.2-1.3) mg/dL AST 19 (14-36) IU/L ALT 13 (<35) IU/L Alkaline Phosphatase 39 (38-126) U/L Total Protein 7.7 (6.3-8.2) g/dL Albumin 4.7 (3.5-5.0) g/dL Globulin 3.0 (1.7-4.1) g/dL Albumin/Globulin Ratio 1.6 (1.0-2.8) HCG, Quant 33884 mIU/mL Imaging Data Pelvic US: Radiologist's impression: PROCEDURE: US PELVIC COMPLETE INDICATIONS: SAB IN PROGRESS TECHNIQUE: Real-time scanning was performed of the pelvic organs, with image documentation. Additional endovaginal scanning was necessary due to incomplete visualization of the adnexal and endometrial structures by transabdominal scanning. COMPARISON: [facility], US, US PELVIC COMPLETE, 02/10/2019, 13:01. FINDINGS: Transabdominal scanning: No pathologic free abdominal or pelvic fluid. Endovaginal scanning: Uterus: Uterus 9.8 x 5.6 x 6.6 cm. No intrauterine gestation is identified. The endometrium is heterogeneous in appearance and thickened measuring 17 mm in combined thickness. Ovaries: The left ovary is not visualized on this study. Right ovary measures 4.1 x 2.6 x 2.7 cm. Likely 2.6 cm corpus luteal cyst on the right. IMPRESSION: 1. No sonographic evidence for an intrauterine gestation. There is heterogeneous thickening of the endometrium measuring up to 17 mm in thickness. This may represent endometrial hemorrhagic products. 2. Nonvisualization of the left ovary. Probable 2.6 cm right ovarian corpus luteal cyst. Although findings are compatible with reported history of spontaneous in progress, recommend continued clinical surveillance and serial quantitative hCG measurements to document expected rate of decline. Short interval followup imaging can be considered as needed. Dictated by: Emery Morton M.D. on 05/01/2019 at 20:01 MDM Narrative Medical decision making narrative: Ultrasound does not show an IUP and she likely passed fetus. HCG is still elevated but expect to fall over the next few days. His she is trying to get into a fertility specialist. She is given Toradol which has seemed to help a little with her pain. Discharge Plan Departure Patient Disposition: Home Clinical Impression: Complete miscarriage Discharge Date/Time: 05/01/19 20:36 Instructions: DI for Miscarriage Activity Restrictions/Additional Instructions: *You have been diagnosed with miscarriage *What to do: I do recommend OBGYN. Also recommend fertility specialist possibly acupuncture as well. Expect to have more cramping and bleeding, [email or web address] *Continue to take medications as directed *Follow up with your primary care provider in 2-3 days *Return to ER if you should have bleeding more than 1 pad every hour, dizziness, lightheadedness, increased abdominal pain or any new, worsening or concerning symptoms Prescriptions: No Action tramadol 50 mg tablet 50 mg PO Q8H PRN (Reason: pain) Qty: 7 RF: 0 potassium chloride 20 mEq tablet extended release 40 meq PO .once Qty: 2 RF: 0 Referrals: [facility] [Provider Group] [facility] [Provider Group]
--- NOTE | 2019-05-01 18:54 | PC.NURSE ---
pt states, 10 weeks , vaginal bleeding for one week, today approx at 5pm, noted moss tissue (eyes,hands) now with abdominal cramping, vaginal bleeding with clots, denies fever and vomiting.
[2019-05-01] MEDS: KETOROLAC 60 MG/2 ML VIAL 30 MG IV (19:03)
[2019-05-01 19:26] LABS: Add Manual Diff / Slide Review NO; Basophils Absolute Auto 100 /uL (0-100); Basophils Percent Auto 0.7 % (0-2); Eosinophils Absolute Auto 0 /uL (0-450); Eosinophils Percent Auto 0.4 % (2-4); Hematocrit 39.4 % (36-46); Hemoglobin 13.3 g/dL (12.0-16.0); Lymphocytes Absolute Auto 1000 /uL (1100-4500); Lymphocytes Percent Auto 8.7 % (25-40); Mean Corpuscular HGB Conc 33.8 % (30-36); Mean Corpuscular Volume 91.6 fL (80-100); Monocytes Absolute Auto 400 /uL (0-900); Neutrophils Absolute Auto 9500 /uL (1500-7000); Neutrophils Percent Auto 86.2 % (50-75); Platelet Count 292 X10^3/uL (150-400); Red Blood Cell Count 4.31 X10^6/uL (4.0-5.2)
[2019-05-01 19:39] LABS: Alanine Aminotransferase 13 IU/L (<35); Albumin 4.7 g/dL (3.5-5.0); Albumin Globulin Ratio 1.6 (1.0-2.8); Alkaline Phosphatase 39 U/L (38-126); Aspartate Aminotransferase 19 IU/L (14-36); Bilirubin Total 0.4 mg/dL (0.2-1.3); Blood Urea Nitrogen 4 mg/dL (7-17); Calcium 9.9 mg/dL (8.4-10.2); Carbon Dioxide 25 mmol/L (22-32); Chloride 101 mmol/L (98-107); Estimated Glomerular Filt Rate > 60.0 mL/min (>60); Glucose 82 mg/dL (70-100); HEMOLYSIS < 15 (0-50); Potassium 3.8 mmol/L (3.4-5.1); Sodium 136 mmol/L (137-145); Total Protein 7.7 g/dL (6.3-8.2)
[2019-05-01 20:16] VITALS: BP 104/75; PULSE 73; RESP 18; O2SAT 99
[2019-05-01 20:36] VITALS: BP 103/63; PULSE 76; RESP 16; TEMP 36.9; O2SAT 100
[2019-05-01 20:54] LABS: HCG Quantitative /Beta subunit 58956 mIU/mL
== END 2019-05-01 20:36 | disposition home or self-care (01) ==
PROVIDERS: Emergency Provider Emergency Medicine
DX: O03.9 Complete or unspecified spontaneous abortion without complication (principal)
CPT/HCPCS: 36415; 76830; 76856; 80053; 84702; 85025; 96374; 99284; J1885